=== PATIENT | male | born 1960 | race Caucasian/White ===

== ENCOUNTER 2016-07-18 02:50 | Inpatient (IN) | payer OTHER ==
[~2016-07-18] VITALS: Ht 190.5 cm; Wt 149.7 kg
[~2016-07-18 02:50] MED LIST: CEPH250C16 PO; CLIN300C2 PO; CLON1TAB PO; GABA400C PO; NIFE90TE3 PO; OXYC40TE66 PO
[2016-07-18 02:56] VITALS: BP 153/95
--- NOTE | 2016-07-18 03:02 | NUR ---
Patient to bed 04.
--- NOTE | 2016-07-18 03:04 | NUR ---
OPEN WOUND TO THE LEFT BOTTOM SOLE AND OPEN WOULD TO #3 TOE AMPUTATION OF RIGHT FOOT.
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
--- NOTE | 2016-07-18 03:05 | NUR ---
Patient being evaluated by physician DR CLEMENTS at bedside.
[2016-07-18 03:28] LABS: BASOPHILS # (AUTO) 0.1 K/uL (0.00-0.22); EOSINOPHILS # (AUTO) 0.3 K/uL (0-0.4); EOSINOPHILS % (AUTO) 3.6 % (0.0-4.0); HEMATOCRIT 31.9 % (36-52); HEMOGLOBIN 10.3 g/dL (12.0-18.0); LYMPHOCYTES # (AUTO) 1.9 K/uL (2.0-11.5); LYMPHOCYTES % (AUTO) 23.1 % (20.5-51.1); MEAN CORPUSCULAR HEMOGLOBIN 25 pg (27-31); MEAN CORPUSCULAR HGB CONC 32 g/dL (33-37); MEAN CORPUSCULAR VOLUME 77 fL (80-94); MONOCYTES # (AUTO) 0.6 K/uL (0.8-1.0); MONOCYTES % (AUTO) 6.8 % (1.7-9.3); NEUTROPHILS # (AUTO) 5.2 K/uL (1.8-7.7); NEUTROPHILS % (AUTO) 65.5 % (42.2-75.2); PLATELET COUNT (AUTO) 278 K/uL (140-450); RED BLOOD CELL COUNT(AUTO) 4.15 MIL/uL (4.20-6.10); RED CELL DISTRIBUTION WIDTH 18.8 % (11.6-13.7); WHITE BLOOD COUNT (AUTO) 8.1 K/uL (4.8-10.8)
--- NOTE | 2016-07-18 03:40 | NUR ---
XRAY AT BEDSIDE.
[2016-07-18 03:50] LABS: INR 1.1 (0.8-1.2); PROTHROMBIN TIME 10.1 secs (10.8-13.4)
[2016-07-18 03:52] LABS: POTASSIUM 4.6 mmol/L (3.5-5.1)
[2016-07-18 03:53] LABS: ANION GAP 14.3 (8-16); CALCIUM 8.9 mg/dL (8.5-10.1); CARBON DIOXIDE 25.3 mmol/L (21-32); CREATININE 2.4 mg/dL (0.6-1.3)
[2016-07-18 03:54] LABS: ALBUMIN 3.1 g/dL (3.4-5.0); TOTAL BILIRUBIN 0.2 mg/dL (0.0-1.0); TOTAL PROTEIN, SERUM 7.9 g/dL (6.4-8.2)
[2016-07-18 03:55] LABS: LACTIC ACID 0.7 mmol/L (0.4-2.0)
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
[2016-07-18] MEDS ORDERED: PIPERACILLIN/TAZOBACTAM 2.25 GM in DEXTROSE 5% 50 ML IV ONE (04:25)
[2016-07-18] MEDS ORDERED: CLINDAMYCIN 600 MG/4 ML VIAL IV ONE (04:25)
[2016-07-18] MEDS ORDERED: PIPERACILLIN/TAZOBACTAM 2.25 GM VIAL IV ONE (04:32)
[2016-07-18 04:35] LABS: AMPHETAMINE, URINE NEGATIVE ng/ml (NEG <=1000); BARBITURATE, URINE NEGATIVE ng/ml (NEG <=200); BENZODIAZEPINE, URINE NEGATIVE ng/mL (NEG <=200); COCAINE, URINE NEGATIVE ng/mL (NEG <=300)
[2016-07-18 04:36] LABS: CANNABINOID, URINE POSITIVE ng/mL (NEG <=50); OPIATE, URINE NEGATIVE ng/mL (NEG <=2000); PHENCYCLIDINE SCREEN,URINE NEGATIVE ng/mL (NEG <=25)
[2016-07-18] MEDS ORDERED: HYDROcodone/APAP 5/325 MG 1 TAB TAB PO ONE (05:10)
--- NOTE | 2016-07-18 06:30 | NUR ---
Patient will be admitted to care of [facility]. Admited to MED-SURG. Will go to [id number]. Belongings list completed. Report to JENNIFER SANCHEZ.
--- NOTE | 2016-07-18 07:10 | NUR ---
RECEIVED PT FROM CHARGE NURSE ASLEEP BUT EASILY AROUSABLE,. AAOX4, WITH NO S/S OF RESPIRATORY DISTRESS OR DISCOMFORT. WITH IV ACCESS AT RIGHT FOREARM 20G INFUSING FLUIDS WELL. WITH WOUND ON RIGHT FOOT AT 3RD DIGIT S/P AMPUTATION COVERED WITH DRY GAUZE AND LATOYA, ALSO WITH LEFT FOOT SOLE WOUND COVERED WITH GAUZE AND LATOYA. WITH MINIMAL SEROSANGUINEOUS DISCHARGE. DISCUSSED PLAN OF CARE, PT VERBALIZED UNDERSTANDING. CALL LIGHT WITHIN REACH, WILL CONTINUE TO MONITOR.
[2016-07-18 08:00] VITALS: BP 132/79
--- NOTE | 2016-07-18 09:14 | NUR ---
DR OBRIEN AT NURSES' STATION
[2016-07-18] MEDS ORDERED: NACL 0.9% 1,000 ML IV SCH (09:38)
[2016-07-18] MEDS ORDERED: LORazepam 2 MG/ML VIAL IVP PRN (09:40)
[2016-07-18] MEDS ORDERED: ALBUTEROL 0.083% 2.5 MG/3 ML NEBU INH PRN (09:40)
[2016-07-18] MEDS ORDERED: ONDANSETRON 4 MG/2 ML VIAL IVP PRN (09:40)
[2016-07-18] MEDS ORDERED: ACETAMINOPHEN 325 MG TAB PO PRN (09:40)
[2016-07-18] MEDS ORDERED: HYDROcodone/APAP 5/325 MG 1 TAB TAB PO PRN ×2 (09:40)
--- NOTE | 2016-07-18 10:31 | NUR ---
COMFORT GIVEN, PT REQUESTING IBUPROFEN, WILL AWAIT FOR ORDERS
[2016-07-18] MEDS ORDERED: IBUPROFEN 400 MG TAB PO PRN (11:05)
--- NOTE | 2016-07-18 11:16 | NUR ---
MEDICAL RECORDS FROM [facility] OBTAINED VIA FAX, AFFIXED IN CHART
--- NOTE | 2016-07-18 11:30 | NUR ---
PT ASLEEP AND SNORING. WILL RETURN TO REASSESS IF IBUPROFEN STILL NEEDED
--- NOTE | 2016-07-18 12:00 | NUR ---
PT LEFT AGAINST MEDICAL ADVICE. INQUIRED TO WHAT IS CAUSING HIS UPSET, STATED THAT HE WANTS HIS IV REMOVED AND IF NOT, HE WILL REMOVE IT HIMSELF. STATED THAT HE IS TIRED OF THIS SYSTEM, AND REFUSED TO SIGN AMA FORM. REMOVED IV ACCESS, CATHETER TIP INTACT. PT LEFT UNIT AMBULATING BY HIMSELF. CHARGE NURSE AWARE.
--- NOTE | 2016-07-18 12:16 | NUR ---
SS NOTE: I ATTEMPTED TO SPEAK WITH PT BEDSIDE BUT PT SAID THAT HE DOES NOT WANT TO SPEAK TO A REGISTERED PUBLIC HEALTH NURSE. PT WAS UPSET ABOUT NOT RECEIVING HIS TYLENOL, STARTED GETTING OUT OF BED AND DISPLAYING AGGRESSIVE BEHAVIOR. Addendum: 07/18/16 at 1333 by Sri Terrazas SS CORRECT TIME: [id number]
--- NOTE | 2016-07-18 12:20 | NUR ---
NOTIFIED DR OBRIEN REGARDING PT LEAVING AGAINST MEDICAL ADVISE
[2016-07-18] MEDS ORDERED: GABAPENTIN 300 MG CAP PO SCH (13:00)
[2016-07-18] MEDS ORDERED: CLINDAMYCIN 600 MG in DEXTROSE 5% 50 ML IV SCH (13:00)
[2016-07-18] MEDS ORDERED: PIPER/TAZO 2.25GM/D5W PREMIX 50 ML IV SCH (13:00)
--- NOTE | 2016-07-18 13:56 | NUR ---
Review faxed to [facility] AT [phone] CJ NUMBER [phone]
[2016-07-18] MEDS ORDERED: clonazePAM 0.5 MG TAB PO SCH (21:00)
[2016-07-19] MEDS ORDERED: NIFEdipine 90 MG TABER PO SCH (09:00)
[2016-07-19] MEDS ORDERED: ENOXAPARIN 40 MG/0.4 ML SYR SUBQ SCH (09:00)
== END 2016-07-18 12:00 | disposition left against medical advice (07) | DRG 344 ==
LOC: MED 02:50 → MTU 05:19
PROVIDERS: ADMIT Internal Medicine; ATTEND Internal Medicine
DX: M86.8X7 Other osteomyelitis, ankle and foot (principal); L03.115 Cellulitis of right lower limb; Z68.41 Body mass index [BMI] 40.0-44.9, adult; L03.116 Cellulitis of left lower limb; N18.3 Chronic kidney disease, stage 3 (moderate); L97.419 Non-pressure chronic ulcer of right heel and midfoot with unspecified severity; G62.9 Polyneuropathy, unspecified; L97.429 Non-pressure chronic ulcer of left heel and midfoot with unspecified severity; E66.01 Morbid (severe) obesity due to excess calories; I73.9 Peripheral vascular disease, unspecified; I12.9 Hypertensive chronic kidney disease with stage 1 through stage 4 chronic kidney disease, or unspecified chronic kidney disease; F17.210 Nicotine dependence, cigarettes, uncomplicated; I87.2 Venous insufficiency (chronic) (peripheral); F12.90 Cannabis use, unspecified, uncomplicated; I87.8 Other specified disorders of veins; F41.9 Anxiety disorder, unspecified; Z53.21 Procedure and treatment not carried out due to patient leaving prior to being seen by health care provider; Z89.421 Acquired absence of other right toe(s); Z89.422 Acquired absence of other left toe(s); Z59.0 Homelessness; Z88.1 Allergy status to other antibiotic agents; Z79.899 Other long term (current) drug therapy
CPT/HCPCS: 36415; 73630; 80053; 80305; 83605; 85025; 85610; 85651; 85730; 86140; 87040; 87070; 87075; 87081; 96365; 96367; 99285; J2543; J3490; J7030; J7060; Q0092

== ENCOUNTER 2016-07-23 01:20 | Inpatient (IN) | payer OTHER ==
[~2016-07-23] VITALS: Ht 190.5 cm; Wt 149.7 kg
[2016-07-23 02:01] VITALS: BP 175/105
--- NOTE | 2016-07-23 02:14 | NUR ---
PT TAKEN TO BED 7
--- NOTE | 2016-07-23 02:16 | NUR ---
PT IS 55 y/o m w/c/o infection to both feet r/t previews amputated toes x 1 mth ago on bilateral feet. pt states was admitted to this hospital THIS PAST monday, but when AMA on monday. PT STATES MED HX OF HTN, INFECTION OF TOES. PT STATES 11/20 PAIN
--- NOTE | 2016-07-23 02:16 | NUR ---
Dr. Painter evaluating patient at bedside.
[2016-07-23] MEDS ORDERED: PIPERACILLIN/TAZOBACTAM 3.375 GM in DEXTROSE 5% 50 ML IV ONE (02:30)
[2016-07-23] MEDS ORDERED: CLINDAMYCIN 900 MG in DEXTROSE 5% 100 ML IV ONE (02:30)
[2016-07-23] MEDS ORDERED: CLINDAMYCIN 900 MG/6 ML VIAL IV ONE (02:39)
[2016-07-23] MEDS ORDERED: PIPERACILLIN/TAZOBACTAM 3.375 GM VIAL IV ONE (02:39)
[2016-07-23] MEDS ORDERED: ONDANSETRON 4 MG/2 ML VIAL IVP PRN (03:00)
[2016-07-23] MEDS ORDERED: MORPHINE SULFATE 2 MG/ML SYR IVP PRN (03:00)
[2016-07-23] MEDS ORDERED: ACETAMINOPHEN 325 MG TAB PO PRN (03:00)
[2016-07-23] MEDS ORDERED: VANCOMYCIN PER PHARMACY MC PRN ×2 (03:00→03:35)
[2016-07-23] MEDS ORDERED: INSULIN LISPRO SLIDING SCALE 100 UNITS/ML VIAL SUBQ PRN (03:00)
[2016-07-23 03:15] LABS: BASOPHILS % (AUTO) 1.2 % (0.0-2.0); LYMPHOCYTES % (AUTO) 23.6 % (20.5-51.1)
[2016-07-23 03:18] LABS: BASOPHILS # (AUTO) 0.1 K/uL (0.00-0.22); EOSINOPHILS # (AUTO) 0.3 K/uL (0-0.4); EOSINOPHILS % (AUTO) 3.4 % (0.0-4.0); HEMATOCRIT 32.9 % (36-52); MEAN CORPUSCULAR HEMOGLOBIN 26 pg (27-31); MEAN CORPUSCULAR HGB CONC 33 g/dL (33-37); MEAN CORPUSCULAR VOLUME 77 fL (80-94); MONOCYTES # (AUTO) 0.6 K/uL (0.8-1.0); MONOCYTES % (AUTO) 6.9 % (1.7-9.3); NEUTROPHILS # (AUTO) 5.6 K/uL (1.8-7.7); NEUTROPHILS % (AUTO) 64.9 % (42.2-75.2); PLATELET COUNT (AUTO) 250 K/uL (140-450); RED BLOOD CELL COUNT(AUTO) 4.28 MIL/uL (4.20-6.10); RED CELL DISTRIBUTION WIDTH 19.3 % (11.6-13.7); WHITE BLOOD COUNT (AUTO) 8.6 K/uL (4.8-10.8)
--- NOTE | 2016-07-23 03:25 | NUR ---
PT APPEARS TO BE SLEEPING IN BED AT THIS TIME. NO SOB NOTED. NO SIGNS OF DISCOMFORT. WILL CONTINUE TO MONITOR.
[2016-07-23 03:38] LABS: ANION GAP 13.5 (8-16); CALCIUM 9.1 mg/dL (8.5-10.1); CARBON DIOXIDE 24.4 mmol/L (21-32); CREATININE 1.9 mg/dL (0.6-1.3); POTASSIUM 3.9 mmol/L (3.5-5.1)
--- NOTE | 2016-07-23 03:40 | NUR ---
Patient will be admitted to care of DR OBRIEN. Admited to MS. Will go to room 120B. Belongings list completed. Report to JENNIFER HAQUE.
[2016-07-23 03:44] LABS: ALBUMIN 3.1 g/dL (3.4-5.0); TOTAL BILIRUBIN 0.1 mg/dL (0.0-1.0); TOTAL PROTEIN, SERUM 7.4 g/dL (6.4-8.2)
[2016-07-23] MEDS ORDERED: VANCOMYCIN 1GM/DEXT 5% PREMIX 200 ML IV SCH ×2 (04:00→05:30)
--- NOTE | 2016-07-23 04:04 | NUR ---
RECEIVED PT. FROM ER PER JULISSA AWAKE AND ALERT. ABLE TO VERBALIZE NEEDS WELL. NO SOB. DX. OF RIGHT FOOT OSTEOMYELITIS. AFEBRILE. OBESE MALE. HX. OF HTN AND DIABETES . NOTED WITH OPEN WOUNDS TO RIGHT FOOT OVER DISTAL ASPECT OF 4TH METATARSAL AND WOUND TO LEFT POSTERIOR OF BIG TOE. EDEMA NOTED TO LOWER EXTREMITIES BILATERAL. CARE PLANS FOR THE NIGHT DISCUSSED WITH PT. CALL LIGHT WITH IN REACH AND RAPID RESPONSE ORIENTATION. WITH RIGHT FOOT, 1ST, 3RD AND 4TH TOE AMPUTATIONS. LUNGS CLEAR.
[2016-07-23 04:13] VITALS: BP 186/100
--- NOTE | 2016-07-23 04:30 | NUR ---
ASSUME PATIENT CARE AND PLAN OF CARE FROM SHABNAM RN. PT IS ALERT AWAKE ORIENTED X4. INITIAL ASSESSMENT DONE. NO S/S OF RESPIRATORY DISTRESS OR SOB NOTED. NO C/O PAIN OR ANY DISCOMFORT AT THIS TIME. PLAB OF CARE REVIEWED TO PT AND VERBALIZED UNDERSTANDING. CALL LIGHT WITHIN REACH. WILL CONTINUE TO MONITOR.
--- NOTE | 2016-07-23 04:45 | NUR ---
CALLED KATHY BRENNAN AND NOTIFIED THAT PT HAS AN ALLERGIC REACTION ON VANCOMYCIN AND NEW ORDERS WERE GIVEN (PLS. SEE CPOE). NEW ORDERS NOTED AND CARRIED OUT. WILL CONTINUE TO MONITOR.
[2016-07-23] MEDS ORDERED: CLINDAMYCIN 600 MG in DEXTROSE 5% 50 ML IV SCH ×2 (05:00→13:00)
[2016-07-23] MEDS ORDERED: PIPERACILLIN/TAZOBACTAM 2.25 GM in DEXTROSE 5% 50 ML IV SCH (05:00)
[2016-07-23] MEDS ORDERED: PIPERACILLIN/TAZOBACTAM 2.25 GM VIAL IV ONE (05:04)
--- NOTE | 2016-07-23 06:00 | NUR ---
AM CARE RENDERED. BED LINEN CHANGED. INSTRUCTED PT TO REPOSITION. KEPT CLEAN AND DRY. CALL LIGHT WITHIN REACH. WILL CONTINUE TO MONITOR.
--- NOTE | 2016-07-23 07:15 | NUR ---
PT HAS NO S/S OF ANY DISCOMFORT. PLAN OF CARE ENDORSED TO AM SHIFT NURSE FOR CONTINUITY OF CARE.
--- NOTE | 2016-07-23 07:17 | NUR ---
RECEIVED REPORT FROM NIGHT RN. PT SLEEPING IN BED. NO S/S OF ACUTE DISTRESS. AAOX4. NO IV ACCESS ON INITIAL ASSESSMENT. AMPUTATIONS TO BILATERAL FEET NOTED. CALL LIGHT WITHIN REACH. SAFETY MEASURES ENSURED. WILL CONTINUE TO MONITOR.
[2016-07-23] MEDS ORDERED: BLOOD GLUCOSE MONITORING 1 DEV DEV FS SCH (07:30)
[2016-07-23 08:00] VITALS: BP 172/100
--- NOTE | 2016-07-23 08:10 | NUR ---
PT YELLING IN ROOM. WATER ON FLOOR AND SIDE TABLE. PT STATES" IF I DON'T GET SOMEONE TO HELP ME, I'M GOING TO HURT SOMEONE". PT STATES HE HASN'T RECEIVED ANY CARE SINCE LAST NIGHT. PT STATES HE HAS PAIN 11/20. NEW IV STARTED. PT MEDICATED ORDERED. PT STATES HE FEELS BETTER NOW. CALL LIGHT WITHIN REACH. SAFETY MEASURES ENSURED. WILL CONTINUE TO MONITOR.
[2016-07-23] MEDS ORDERED: ENOXAPARIN 30 MG/0.3 ML SYR SUBQ SCH (09:00)
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
[2016-07-23] MEDS ORDERED: PIPER/TAZO 2.25GM/D5W PREMIX 50 ML IV SCH (13:00)
--- NOTE | 2016-07-25 08:29 | NUR ---
[facility] FAXED ER, H&P TO IE [phone] PHONE CJ [phone]
== END 2016-07-23 09:12 | disposition left against medical advice (07) | DRG 344 ==
LOC: MED 01:20 → MTU 03:01
PROVIDERS: ADMIT Hospitalist; ATTEND Hospitalist
DX: E11.69 Type 2 diabetes mellitus with other specified complication (principal); M86.8X7 Other osteomyelitis, ankle and foot; M86.671 Other chronic osteomyelitis, right ankle and foot; L03.115 Cellulitis of right lower limb; I12.9 Hypertensive chronic kidney disease with stage 1 through stage 4 chronic kidney disease, or unspecified chronic kidney disease; Z53.21 Procedure and treatment not carried out due to patient leaving prior to being seen by health care provider; Z72.0 Tobacco use; M79.672 Pain in left foot; N18.9 Chronic kidney disease, unspecified; Z59.0 Homelessness; Z88.1 Allergy status to other antibiotic agents
CPT/HCPCS: 36415; 80053; 82948; 85025; 85651; 86140; 87081; 96365; 99285; J2270; J2543; J3370; J3490; J7030; J7060